=== PATIENT | male | born 1945 | race Caucasian/White ===

== ENCOUNTER 2020-12-19 08:20 | Outpatient (REF) | payer MEDICARE, OTHER, SELFPAY ==
[2020-12-20 11:21] LABS: Free Prostate Spec Ag 0.9 ng/mL; Percent Free Prostate Spec Ag 41 % (calc) (>25); Prostate Specific Ag Total 2.2 ng/mL (< OR = 4.0)
== END 2020-12-19 08:21 | disposition home or self-care (01) ==
LOC: HO.LAB 08:20
PROVIDERS: Absent Provider Urology; PCP Internal Medicine; Visit Provider Urology
DX: Z12.5 Encounter for screening for malignant neoplasm of prostate (principal); R97.20 Elevated prostate specific antigen [PSA]; N40.1 Benign prostatic hyperplasia with lower urinary tract symptoms
CPT/HCPCS: 36415; 84153; 84154

== ENCOUNTER → 2020-12-23 08:56 | Outpatient (BNVA) | payer MEDICARE, OTHER, SELFPAY | PROVIDERS: PCP Internal Medicine; Visit Provider Urology | DX: R97.20 Elevated prostate specific antigen [PSA] (principal); N40.1 Benign prostatic hyperplasia with lower urinary tract symptoms | CPT/HCPCS: 99212 ==

== ENCOUNTER 2021-06-19 08:29 | Outpatient (REF) | payer MEDICARE, OTHER, SELFPAY ==
[2021-06-20 14:20] LABS: Percent Free Prostate Spec Ag 43 % (calc) (>25); Prostate Specific Ag Total 4.6 ng/mL (< OR = 4.0)
== END 2021-06-19 08:30 | disposition home or self-care (01) ==
LOC: HO.LAB 08:29
PROVIDERS: PCP Internal Medicine; Visit Provider Urology
DX: Z12.5 Encounter for screening for malignant neoplasm of prostate (principal); N13.8 Other obstructive and reflux uropathy; N40.1 Benign prostatic hyperplasia with lower urinary tract symptoms; R97.20 Elevated prostate specific antigen [PSA]
CPT/HCPCS: 36415; 84153; 84154

== ENCOUNTER → 2021-06-29 08:47 | Outpatient (BNVA) | payer MEDICARE, OTHER, SELFPAY | PROVIDERS: PCP Internal Medicine; Visit Provider Urology | DX: Z13.89 Encounter for screening for other disorder (principal) | CPT/HCPCS: Q3014 ==

== ENCOUNTER 2022-01-12 08:12 | Outpatient (REF) | payer MEDICARE, OTHER, SELFPAY ==
[2022-01-12 09:25] LABS: PSA,Total (Free>4and<10) 1.77 ng/mL (0.00-4.00)
== END 2022-01-12 08:13 | disposition home or self-care (01) ==
LOC: HO.LAB 08:12
PROVIDERS: Visit Provider Urology
DX: Z12.5 Encounter for screening for malignant neoplasm of prostate (principal); N13.8 Other obstructive and reflux uropathy; N40.1 Benign prostatic hyperplasia with lower urinary tract symptoms; R97.20 Elevated prostate specific antigen [PSA]
CPT/HCPCS: 36415; 84153

== ENCOUNTER → 2022-01-19 10:18 | Outpatient (BNVA) | payer MEDICARE, OTHER, SELFPAY | PROVIDERS: PCP Internal Medicine; Visit Provider Urology | DX: R97.20 Elevated prostate specific antigen [PSA] (principal); N40.1 Benign prostatic hyperplasia with lower urinary tract symptoms; R35.1 Nocturia | CPT/HCPCS: 51798; 99212 ==

== ENCOUNTER 2022-07-25 08:44 | Outpatient (REF) | payer MEDICARE, OTHER, SELFPAY | END 2022-07-25 08:45 | disposition home or self-care (01) | LOC: HO.LAB 08:44 | PROVIDERS: PCP Nurse Practitioner Family; Visit Provider Urology | DX: R97.20 Elevated prostate specific antigen [PSA] (principal); Z12.5 Encounter for screening for malignant neoplasm of prostate | CPT/HCPCS: 36415; 84153 ==

== ENCOUNTER → 2022-08-02 09:07 | Outpatient (BNVA) | payer MEDICARE, OTHER, SELFPAY | PROVIDERS: PCP Nurse Practitioner Family; Visit Provider Urology | DX: N40.1 Benign prostatic hyperplasia with lower urinary tract symptoms (principal); N13.8 Other obstructive and reflux uropathy; R97.20 Elevated prostate specific antigen [PSA] | CPT/HCPCS: Q3014 ==